=== PATIENT | female | born 1960 | race Caucasian/White ===

== ENCOUNTER 2016-11-13 12:23 | Observation (INO) | payer OTHER ==
[2016-11-13 12:53] VITALS: BMI 31.1
[2016-11-13] MEDS ORDERED: ASPIRIN 81 MG CHEWABLE TABLETS PO ONE (13:03)
--- NOTE | 2016-11-13 13:03 | PDOC ---
History of Present Illness - General History Source: Patient Exam Limitations: No Limitations - History of Present Illness Initial Comments: 11/13/16 13:08 <Donna Roberts - Last Filed: 11/13/16 16:54> - General History Source: Patient Exam Limitations: No Limitations - History of Present Illness Initial Comments: 11/13/16 17:36 The patient is a 55-year-old woman, with a past medical history of gastroesophageal reflux disease and constipation who presents to the emergency department via walk-in for further evaluation of a multiple complaints. No fall / trauma. She reports a mild left temporal headache that occasionally radiates to the back of her head and down her left upper/lower extremities. Patient reports associated symptoms of neck pain and pressure sensation behind her eyes. She admits that her neck pain is resolved after taking Motrin. P Also endorses weakness to her L arm that has been going on for several days. She presents to the ED today, as her symptoms have persisted and worsen today. Patient also reports nonexertional chest tightness for the past couple of days. She also reports recently having URI symptoms of a constant cough and shortness of breath for the past weeks. She denies fever, chills, lightheadedness, dizziness, palpitations, abdominal pain, nausea, vomiting, diarrhea. Allergies: None Known Past Surgical History: Right inguinal hernia repair Social History: No tobacco, ETOH and recreational drug use. Primary Care Physician: Dr. June Schafer [phone] <Dhruv Cole - Last Filed: 11/13/16 17:39> - General Stated Complaint: LT SIDE NUMBNESS, FACE PAIN Time Seen by Provider: 11/13/16 12:47 Past History <Donna Roberts - Last Filed: 11/13/16 16:54> - Past Medical History Anemia: No Asthma: No Cancer: No Cardiac Disorders: No CVA: No COPD: No CHF: No Dementia: No Diabetes: No GI Disorders: Yes (GERD) Disorders: No HTN: No Hypercholesterolemia: No Liver Disease: No Suicide Attempt (Hx): No Seizures: No Thyroid Disease: No Lung CA: Yes (depression) - Surgical History Abdominal Surgery: Yes (R INGUINAL HERNIA REPAIR) Appendectomy: No Cardiac Surgery: No Cholecystectomy: No Lung Surgery: No Neurologic Surgery: No Orthopedic Surgery: No - Psycho/Social/Smoking Cessation Hx Suicidal Ideation: No Smoking History: Never smoked Have you smoked in the past 12 months: No Hx Alcohol Use: No Drug/Substance Use Hx: No Substance Use Type: None Hx Substance Use Treatment: No <Dhruv Cole - Last Filed: 11/13/16 17:39> - Past Medical History Allergies/Adverse Reactions: Allergies Allergy/AdvReac Type Severity Reaction Status Date / Time No Known Drug Allergies Allergy Verified 11/13/16 12:51 Review of Systems - Review of Systems Able to Perform ROS?: Yes Comments:: 11/13/16 13:08 <Roberts,Donna - Last Filed: 11/13/16 16:54> - Review of Systems Able to Perform ROS?: Yes Comments:: 11/13/16 17:37 CONSTITUTIONAL: No reported: Fever, Chills, Diaphoresis, Generalized Weakness, Malaise, Loss of Appetite HEENT: Reported: Eye Pain. Visual Changes. No reported: Rhinorrhea, Nasal Congestion, Throat Pain, Throat Swelling, Difficulty Swallowing, Mouth Swelling, Ear Pain. CARDIOVASCULAR: Reported: Chest Tightness. No reported: Syncope, Palpitations, Irregular Heart Rate, Lightheadedness, Peripheral Edema RESPIRATORY: Reported: Cough. Shortness of Breath. No reported: SOB with Exertion, Orthopnea , Wheezing, Stridor, Hemoptysis GASTROINTESTINAL: No reported: Abdominal pain, Abdominal Distension, Nausea, Vomiting, Diarrhea, Constipation, Melena, Hematochezia GENITOURINARY: No reported: Dysuria, Frequency, Urgency, Hesitancy, Flank Pain, Genital Pain MUSCULOSKELETAL: Reported: +Neck Pain No reported: Myalgia, Arthralgia, Joint Swelling, Back pain. SKIN: No reported: Rash, Itching, Pallor HEMEATOLOGIC/IMMUNOLOGIC: No reported: Easy Bleeding, Easy Bruising, Lymphadenopathy, Frequent infections ENDOCRINE: No reported: Unexplained Weight Gain, Unexplained Weight Loss, Heat Intolerance , Cold Intolerance NEUROLOGIC: Reported: Headache. Left Sided Weakness/Numbing Sensations. No reported: Headache, Vertigo, Lightheadedness, Unsteady Gait, Seizure, Mental Status Changes, Incontinence PSYCHIATRIC: No reported: Anxiety, Depression <KelseyJed reyezan - Last Filed: 11/13/16 17:39> *Physical Exam - Vital Signs Last Vital Signs Temp Pulse Resp BP Pulse Ox 97.8 F 74 18 114/81 98 11/13/16 12:51 11/13/16 12:51 11/13/16 12:51 11/13/16 12:51 11/13/16 12:51 - Physical Exam Comments: 11/13/16 13:08 <Donna Roberts - Last Filed: 11/13/16 16:54> - Vital Signs Last Vital Signs Temp Pulse Resp BP Pulse Ox 97.8 F 74 18 114/81 98 11/13/16 12:51 11/13/16 12:51 11/13/16 12:51 11/13/16 12:51 11/13/16 12:51 - Physical Exam Comments: 11/13/16 17:37 GENERAL: The patient is awake, alert, and fully oriented, Nontoxic - in no acute distress. HEAD: Normocephalic, atraumatic. EYES: extraocular movements intact, sclera anicteric, conjunctiva clear. ENT: Normal voice, Moist mucous membranes. NECK: Normal range of motion, supple LUNGS: Breath sounds equal, clear to auscultation bilaterally. No wheezes, no rhonchi, no rales. HEART: Regular rate and rhythm, normal S1 and S2 without murmur, rub or gallop. ABDOMEN: Soft, nontender, normoactive bowel sounds. No guarding, no rebound. No CVA tenderness EXTREMITIES: Normal range of motion, no edema. No clubbing or cyanosis. No cords, erythema, or tenderness. NEUROLOGICAL: No facial assymetry, Normal speech, 5-/5 elbow flexion on LUE PSYCH: Normal mood, normal affect. SKIN: Warm, Dry, normal turgor, <Kelsey,Dhruv - Last Filed: 11/13/16 17:39> Heart Score/ECG Review - History History: Slightly suspicious - Electrocardiogram EKG: Normal - Age Age: 45-65 - Risk Factors Based on the list above the patient has:: No risk factors known - Troponin Troponin: </= normal limit - Score Heart Score - Total: 1 - ECG Impressions Comment:: 11/13/16 13:29 Twelve-lead EKG was performed and reviewed by me. There is normal sinus rhythm with a normal rate. rate of [address] changes suggestive of acute ischemia <Kelsey,Dhruv - Last Filed: 11/13/16 17:39> ED Treatment Course - LABORATORY CBC & Chemistry Diagram: 11/13/16 13:25 11/13/16 13:25 - RADIOLOGY Radiograph Interpretation: 11/13/16 15:14 EXAM: CT/HEAD CT WITHOUT CONTRAST IMPRESSION: No evidence of intracranial hemorrhage. There is no discrete infarct within the limitations of CT. No obvious mass lesion is identified on noncontrast imaging. There is no extra-axial fluid collection. The ventricles and cisterns appear unremarkable. Partly empty sella turcica. EXAM: RAD/CHEST X-RAY PORTABLE IMPRESSION: Since 07/11/2016, there is little change. Again noted are clear lungs , normal aorta, normal saray and large heart. The angles are sharp. The bones and soft tissues are intact <Donna Roberts - Last Filed: 11/13/16 16:54> - LABORATORY CBC & Chemistry Diagram: 11/13/16 13:25 11/13/16 13:25 <Dhruv Cole - Last Filed: 11/13/16 17:39> Medical Decision Making - Medical Decision Making 11/13/16 16:11 A call was placed to patient's PMD, Dr. June Schafer. Informed by office staff that Dr. Schafer is with clients and would get back to us at her earliest convenience. 11/13/16 16:12 A call was placed to Dr. Delon Milan. Left voicemail. 11/13/16 16:[address] Delon Milan. Case was discussed. Accepts case. <Donna Roberts - Last Filed: 11/13/16 16:54> - Medical Decision Making 11/13/16 13:01 55F no pmhx presents with complaint of headache, left sided neck pain, L sided arm weakness, chest pain, shortness of breath, in setting of having recent URI/ cough. On exam pt is well appearing in no distress, with exam noted for mild L sided weakness. pt with known history of L sided cervical radiculopathy at approx c6-c7 --? possible cause of her neck pain and weakness will obtain trops ekg to r/o acs will obtain cxr to r/o pna will reassess 11/13/16 16:05 pts labs reviewed negative cxr negative ct head negative will discuss with dr. Schafer regarding admission/observation. 11/13/16 16:14 consideration given to PE/dissectoin - while pt has few risk factors, that is one diagnosis that would tie together her vague complaints of chest pain and arm weakness/tingling. will obtain CTA chest 11/13/16 16:[address] Milan agreed with observation awaiting CTA chest. Stable for telemetry Case discussed in detail with admitting physician including history, physical exam and ancillary studies. Admitting physician has assumed care for the patient, will follow all pending diagnostics and will complete the evaluation and treatment. <Dhruv Cole - Last Filed: 11/13/16 17:39> *DC/Admit/Observation/Transfer - Attestations Scribe Attestion: 11/13/16 13:08 Documentation prepared by Donna Roberts, acting as medical care evaluation specialist for Dhruv Cole MD. <Donna Roberts - Last Filed: 11/13/16 16:54> - Discharge Dispostion Admit: Yes <Dhruv Cole - Last Filed: 11/13/16 17:39> Diagnosis at time of Disposition: Chest pain Qualifiers: Chest pain type: unspecified Qualified Code(s): R07.9 - Chest pain, unspecified - Referrals Referrals: June Schafer MD [Primary Care Provider] -
[2016-11-13] MEDS ORDERED: ASPIRIN 81 MG CHEWABLE TABLETS ONE (13:17)
[2016-11-13 13:31] LABS: BASOPHIL 0.3 % (0-2.0); EOSINOPHIL 0.1 % (0-4.5); MCH 26.6 pg (25.7-33.7); MCHC 32.9 g/dl (32.0-36.0); MEAN CELL VOLUME 80.8 fl (80-96); MEAN PLT VOLUME 9.1 fl (7.5-11.1); NEUTROPHILS 61.2 % (42.8-82.8); PLATELET COUNT 188 K/MM3 (134-434); RDW 13.1 % (11.6-15.6); WHITE BLOOD COUNT 7.1 K/mm3 (4.0-10.0)
[2016-11-13 13:54] LABS: ALBUMIN 3.6 g/dl (3.4-5.0); ANION GAP 10 (8-16); CALCIUM 8.4 mg/dL (8.5-10.1); CO2 28 mmol/L (21-32); CREATININE 0.5 mg/dL (0.55-1.02); GLUCOSE,RANDOM 88 mg/dL (74-106); SGOT/AST 15 U/L (15-37); SGPT/ALT 21 U/L (12-78)
[2016-11-13 13:59] LABS: ALK PHOS 76 U/L (45-117); BILIRUBIN,TOTAL 0.4 mg/dL (0.2-1.0); TOT PROT 6.9 g/dl (6.4-8.2); TROPONIN I < 0.02 ng/ml (0.00-0.05)
[2016-11-13 14:44] LABS: THYROID STIMULATING HORMONE 0.37 uIU/ml (0.358-3.74)
[2016-11-13 16:20] LABS: URINE APPEARANCE CLEAR; URINE BILIRUBIN NEGATIVE (NEGATIVE); URINE BLOOD NEGATIVE (NEGATIVE); URINE COLOR STRAW; URINE GLUCOSE (UA) NEGATIVE (NEGATIVE); URINE KETONE NEGATIVE (NEGATIVE); URINE LEUK ESTERASE NEGATIVE (NEGATIVE); URINE NITRITE NEGATIVE (NEGATIVE); URINE PROTEIN NEGATIVE (NEGATIVE); URINE UROBILINOGEN NEGATIVE E.U./dl (0.2-1.0)
[2016-11-13] MEDS ORDERED: SIMETHICONE 80 MG TAB.CHEW (FP) PO PRN (23:08)
[2016-11-13] MEDS ORDERED: traMADol HCL 50 MG TABLET PO PRN (23:10)
[2016-11-13] MEDS: FAMOTIDINE 20 MG/50 ML IVPB 50 ML IVPB SCH (23:22)
--- NOTE | 2016-11-13 23:26 | HP ---
Admitting History and Physical - Admission History of Present Illness: 55 y/o f came for eval of retrosternal chest pain and pain in neck and left shoulder and left arm pain is continuous, no precipitating or palliating factors she is continually busy and has not had to stop her usual activity she is non smoker she is sedentary lately with strong family hx heart disease- both parents from heart disease and a brother has ?congenital heart disease she had a chest ct angio head ct and cxr in er- unremarkable pmhx- severe gerd, not on meds but is candidate and pending surgical procedure for a hiatus hernia History Source: Patient Limitations to Obtaining History: No Limitations - Past Medical History Gastrointestinal: Yes: GERD, Hiatal Hernia ...LMP: 02/24/14 - Smoking History Smoking history: Never smoked Have you smoked in the past 12 months: No - Alcohol/Substance Use Hx Alcohol Use: No Home Medications - Allergies Allergies/Adverse Reactions: Allergies Allergy/AdvReac Type Severity Reaction Status Date / Time No Known Drug Allergies Allergy Verified 11/13/16 12:51 Physical Examination Vital Signs: Vital Signs Temperature 97.8 F 11/13/16 12:51 Pulse Rate 74 11/13/16 21:05 Respiratory Rate 18 11/13/16 12:51 Blood Pressure 116/75 11/13/16 21:05 O2 Sat by Pulse Oximetry (%) 98 11/13/16 12:51 Constitutional: Yes: No Distress, Calm, Obese Eyes: Yes: WNL, Conjunctiva Clear, EOM Intact HENT: Yes: WNL, Atraumatic, Normocephalic Neck: Yes: WNL, Supple, Trachea Midline Cardiovascular: Yes: WNL, Regular Rate and Rhythm Respiratory: Yes: WNL, Regular, CTA Bilaterally Gastrointestinal: Yes: WNL, Normal Bowel Sounds Musculoskeletal: Yes: WNL Extremities: Yes: WNL Edema: No Integumentary: Yes: WNL Neurological: Yes: WNL, Alert, Oriented ...Motor Strength: WNL Psychiatric: Yes: WNL Assessment/Plan 55 y/o f chest pain gerd, untreated family hx heart dis cardiac enzymes ekg cardiol eval re ?stress test
[2016-11-13 23:58] LABS: TROPONIN I < 0.02 ng/ml (0.00-0.05)
--- NOTE | 2016-11-14 00:21 | EKG ---
Test Reason : Blood Pressure : / mmHG Vent. Rate : 063 BPM Atrial Rate : 063 BPM P-R Int : 166 ms QRS Dur : 102 ms QT Int : 414 ms P-R-T Axes : 047 -18 019 degrees QTc Int : 423 ms NORMAL SINUS RHYTHM LOW VOLTAGE QRS INCOMPLETE RIGHT BUNDLE BRANCH BLOCK CANNOT RULE OUT ANTERIOR INFARCT , AGE UNDETERMINED ABNORMAL ECG WHEN COMPARED WITH ECG OF 10-MAY-2015 21:15, NO SIGNIFICANT CHANGE WAS FOUND Confirmed by SOLIS CMKEON, TIFFANIE ([id number]) on 11/14/2016 12:21:16 AM Referred By: Confirmed By:TIFFANIE ELY MD
[2016-11-14 06:24] VITALS: TEMP 98.2
[2016-11-14 08:20] LABS: TROPONIN I < 0.02 ng/ml (0.00-0.05)
--- NOTE | 2016-11-14 08:58 | CON.CARD ---
Consult Consult Specialty:: Cardiology Referred by:: Dr. Milan Reason for Consultation:: Chest pain - History of Present Illness Chief Complaint: Chest pain History of Present Illness: 55 year old woman with a history of GERD, came to the ER with c/o headache, L arm pain and L arm weakness and chest pain. In terms of chest pain pt states that she has had intermittent chest pain for over one year that occurs on and off and can last for hours at at time. she states that it always occurs at rest and never with exertion. described as substernal, pressure like, non-radiating. she came to the er because of headache, left sided neck pain, left arm pain and weakness. she did have a recent URI. denies pnd, orthopnea, LE edema, lightheadedness, dizziness, syncope, or near syncope. - History Source History Provided By: Patient, Medical Record Limitations to Obtaining History: No Limitations - Past Medical History Gastrointestinal: Yes: GERD, Hiatal Hernia ...LMP: 02/24/14 - Alcohol/Substance Use Hx Alcohol Use: No - Smoking History Smoking history: Never smoked Have you smoked in the past 12 months: No - Social History ADL: Independent History of Recent Travel: No Home Medications - Allergies Allergies/Adverse Reactions: Allergies Allergy/AdvReac Type Severity Reaction Status Date / Time No Known Drug Allergies Allergy Verified 11/13/16 12:51 - Home Medications Home Medications: Ambulatory Orders NK [No Known Home Medication] 11/14/16 Family Disease History - Family Disease History Family History: Denies Review of Systems - Review of Systems Constitutional: denies: No Symptoms, Chills, Diaphoresis, Fever, Lethargy, Loss of Appetite, Malaise, Night Sweats, Unintentional Wgt. Loss, Weakness, Other Eyes: denies: No Symptoms, Blind Spots, Blurred Vision, Double Vision, Eye Pain , Floaters, Photophobia, Recent Change in Vision, Other HENT: denies: No Symptoms, Difficult Swallowing, Ear Discharge, Ear Pain, Epistaxis, Gingival Bleeding, Hearing Loss, Mouth Swelling, Nasal Congestion, Ocular Prosthesis, Throat Pain, Toothache, Ringing in Ears, Other Neck: reports: Stiffness, Tenderness. denies: No Symptoms, Decreased ROM, Lumps , Pain on Movement, Swollen Glands, Other Cardiovascular: reports: Chest Pain, Shortness of Breath. denies: No Symptoms, Edema, Palpitations, Other Respiratory: reports: Cough, SOB. denies: No Symptoms, Exercise Intolerance, Hemoptysis, Orthopnea, PND, Snoring, SOB on Exertion, Wheezing, Other Gastrointestinal: reports: Indigestion. denies: No Symptoms, Abdominal Pain, Bloating, Constipation, Diarrhea, Dysphagia, Melena, Nausea, Rectal Bleeding, Vomiting, Vomiting Blood, Other Genitourinary: denies: No Symptoms, Burning, Discharge, Dysuria, Flank Pain, Frequency, Hematuria, Incontinence, Lesions, Menses, Pain, Testicular Mass, Testicular Pain, Testicular Swelling, Urgency, Vaginal Bleeding, Other Breasts: denies: No Symptoms Reported, See HPI, Breast Implants, Discharge from Nipple, Lumps, Pain, Skin Changes, Other Musculoskeletal: reports: Extremity Pain. denies: No Symptoms, Back Pain, Crepitus, Decreased ROM, Joint Pain, Joint Swelling, Muscle Pain, Muscle Cramps , Muscle Weakness, Other Integumentary: denies: No Symptoms, Blister, Bruising, Change in Color, Eczema, Erythema, Incision, Lesions, Lump, Pallor, Pruritis, Rash, Wound, Other Neurological: reports: Weakness. denies: No Symptoms, Change in LOC, Change in Speech, Confusion, Dizziness, Headache, Incoordination, Numbness, Parasthesia, Pre-Existing Deficit, Seizure, Syncope, Tremors, Unsteady Gait, Other Endocrine: denies: No Symptoms, Excessive Sweating, Flushing, Increased Hunger, Increased Thirst, Intolerance to Cold, Intolerance to Heat, Unexplained Weight Gain, Unexplained Weight Loss, Other Hematology/Lymphatic: denies: No Symptoms, Easily Bruised, Excessive Bleeding, Swollen Glands, Other Psychiatric: denies: No Symptoms, Altered Sleep Pattern, Anxiety, Depression, Hallucinations, Panic, Paranoia, Suicidal, Other Vital Signs: Vital Signs Temperature 98.2 F 11/14/16 06:23 Pulse Rate 71 11/14/16 06:23 Respiratory Rate 11/14/16 06:23 Blood Pressure 112/77 11/14/16 06:23 O2 Sat by Pulse Oximetry (%) 97 11/14/16 06:23 Constitutional: Yes: Well Nourished, No Distress, Calm Eyes: Yes: WNL, Conjunctiva Clear, EOM Intact, PERRL HENT: Yes: WNL, Atraumatic, Normocephalic Neck: Yes: WNL, Supple, Trachea Midline Respiratory: Yes: WNL, Regular, CTA Bilaterally. No: Rales, Rhonchi, Wheezes Gastrointestinal: Yes: WNL, Normal Bowel Sounds, Soft. No: Distention, Tenderness Renal/: Yes: WNL Cardiovascular: Yes: WNL, Regular Rate and Rhythm. No: Bradycardia, Tachycardia , Pulse Irregular, Gallop, Rub, Varicosities JVD: No Carotid Bruit: No PMI: Non-Displaced Heart Sounds: Yes: S1, S2. No: Split S2, S3, S4, Clicks, Gallop, Rub, Bruit Murmur: No: Systolic Murmur, Diastolic Murmur Musculoskeletal: Yes: WNL Extremities: Yes: WNL Edema: No Peripheral Pulses WNL: Yes Peripheral Pulses: 2+ Left Doralis Pedis, 2+ Right Dorsalis Pedis Integumentary: Yes: WNL Neurological: Yes: WNL, Alert, Oriented, Cran Nerves II-XII Intact ...Motor Strength: WNL Psychiatric: Yes: WNL, Alert, Oriented - Other Data Labs, Other Data: Troponin, BNP 11/13/16 11/14/16 23:10 07:35 Troponin I < 0.02 < 0.02 Troponin, BNP 11/13/16 11/14/16 23:10 07:35 Troponin I < 0.02 < 0.02 ekg-nsr 63bpm, poor R progression, incomplete rbbb Echo: Pending Imaging - Results Chest X-ray: Report Reviewed, Image Reviewed EKG: Report Reviewed, Image Reviewed Other: Report Reviewed, Image Reviewed Assessment/Plan 55 year old woman with a history of GERD, came to the ER with c/o headache, L arm pain and L arm weakness and chest pain. In terms of chest pain pt states that she has had intermittent chest pain for over one year that occurs on and off and can last for hours at at time. she states that it always occurs at rest and never with exertion. described as substernal, pressure like, non-radiating. she came to the er because of headache, left sided neck pain, left arm pain and weakness. she did have a recent URI. Atypical chest pain-unlikely ACS -cardiac enzymes wnl -will check echo and exercise treadmill stress test this am -if above shows no sig abnl, pt would be acceptable for discharge from a cardiac standpoint with a plan for close outpatient follow up L arm pain and weakness/neck pain -does not appear related to cardiac issues -evaluate for other sources such as cervical disc disease
[2016-11-14] MEDS ORDERED: ASPIRIN COATED 81 MG TABLET.EC PO SCH (10:00)
[2016-11-14] MEDS: FAMOTIDINE 20 MG/50 ML IVPB 50 ML IVPB SCH (11:32)
[2016-11-14 12:24] VITALS: BP 111/66; PULSE 73
--- NOTE | 2016-11-14 13:29 | DS ---
Physical Examination Vital Signs: Vital Signs Temperature 98.2 F 11/14/16 06:23 Pulse Rate 73 11/14/16 12:00 Respiratory Rate 18 11/14/16 12:00 Blood Pressure 111/66 11/14/16 12:00 O2 Sat by Pulse Oximetry (%) 94 L 11/14/16 12:00 Discharge Summary Reason For Visit: CHEST PAIN Current Active Problems Chest pain (Acute) Hospital Course: seen by cardio pending ett and echo will d/c after those tests if results are negative - Instructions Referrals: June Schafer MD [Primary Care Provider] - - Home Medications Comprehensive Discharge Medication List: Ambulatory Orders NK [No Known Home Medication] 11/14/16
--- NOTE | 2016-11-14 15:58 | TRE ---
Protocol Name : SHAD Max Work Load (METS*10) : 125 Time In Exercise Phase : 00:10:30 Max. Systolic BP : 128 mmHg Max Diastolic BP : 80 mmHg Max Heart Rate : 142 BPM Max Predicted Heart Rate : 167 BPM Attending Physician : TIFFANIE ELY Reason For Termination : Target Heart Rate Achieved Reason for Test : CHEST PAIN Stress Protocol : SHAD Rest HR : 81 BPM PeakEx METs : 12.5 METS Arrhythmias : No Arrhythmias Resting ECG : Normal Recovery ECG Response (OLD) : Overall Impression : Normal stress test Chest Pain : No Chest Pain HR Response To Exercise : Normal Overall HR Response To Exercise BP Response To Exercise : Normal Resting BP with Blunted Response Functional Capacity : Normal Diagnosis : 1. Overall negative stress test 2. Appropriate blood pressure response 3. Fair exercise tolerance and capacity 4. No significant ECG changes were seen Confirmed by TIFFANIE ELY MD ([id number]) on 11/14/2016 3:57:53 PM
--- NOTE | 2016-11-14 17:44 | EKG ---
Test Reason : Blood Pressure : / mmHG Vent. Rate : 066 BPM Atrial Rate : 066 BPM P-R Int : 162 ms QRS Dur : 108 ms QT Int : 412 ms P-R-T Axes : 037 -23 016 degrees QTc Int : 431 ms NORMAL SINUS RHYTHM NORMAL ECG WHEN COMPARED WITH ECG OF 13-NOV-2016 13:24, NO SIGNIFICANT CHANGE WAS FOUND Confirmed by TIFFANIE ELY MD ([id number]) on 11/14/2016 5:44:33 PM Referred By: DAKOTAH MARKS Confirmed By:TIFFANIE ELY MD
--- NOTE | 2016-11-19 10:28 | EKG ---
Test Reason : Blood Pressure : / mmHG Vent. Rate : 070 BPM Atrial Rate : 070 BPM P-R Int : 162 ms QRS Dur : 106 ms QT Int : 412 ms P-R-T Axes : 034 -10 025 degrees QTc Int : 444 ms NORMAL SINUS RHYTHM LOW VOLTAGE QRS INCOMPLETE RIGHT BUNDLE BRANCH BLOCK WHEN COMPARED WITH ECG OF 13-NOV-2016 13:24, NO SIGNIFICANT CHANGE WAS FOUND Confirmed by MARIA ELENA RIOS MD ([id number]) on 11/19/2016 10:28:14 AM Referred By: Confirmed By:MARIA ELENA RIOS MD
== END 2016-11-14 17:00 | disposition home or self-care (01) ==
LOC: JER 12:23 → JERBED 16:54 → UNDOADMOB 17:31 → JERBED 17:31
PROVIDERS: ADMIT Internal Medicine Nephrology; ATTEND Internal Medicine Nephrology
DX: R07.89 Other chest pain (principal); K21.9 Gastro-esophageal reflux disease without esophagitis; K44.9 Diaphragmatic hernia without obstruction or gangrene; M54.2 Cervicalgia; M79.603 Pain in arm, unspecified
CPT/HCPCS: 36415; 70450-TC; 71010-TC; 71275-TC; 74175-TC; 80053; 81003; 82550; 83735; 83880; 84443; 84484; 84703; 85025; 93005; 93010; 93017; 93018; 93306-TC; 99284-25; G0378

== ENCOUNTER 2016-12-27 20:15 | Emergency (ER) | payer OTHER ==
[2016-12-27 21:05] VITALS: BP 136/77; PULSE 77; TEMP 98.5; BMI 33.2
--- NOTE | 2016-12-27 22:31 | PDOC ---
History of Present Illness - General Chief Complaint: Pain Stated Complaint: PAIN Time Seen by Provider: 12/27/16 21:57 History Source: Patient Exam Limitations: No Limitations - History of Present Illness Initial Comments: 12/27/16 22:31 Patient is here with complaints of chronic neck pain. States is seen ear nose and throat doctor and Dr. Schafer and is being evaluated for swelling to the right side of her neck. Patient is unclear as to the results of any of these studies and was unable to see Dr. Molina in office the past 2 days. Patient has only been taking ibuprofen for pain relief but states pain is becoming more severe. Dr. Schafer's office recommended her coming to emergency department for evaluation and pain control. Denies fever, denies any airway difficulty, denies any worsens swelling then has been her norm the past week, is able to swallow 12/27/16 22:41 Severity: moderate Associated Symptoms: reports: denies symptoms, malaise. denies: fever/chills, headaches Past History - Travel Traveled outside of the country in the last 30 days: No Close contact w/someone who was outside of country & ill: No - Past Medical History Allergies/Adverse Reactions: Allergies Allergy/AdvReac Type Severity Reaction Status Date / Time No Known Drug Allergies Allergy Verified 12/27/16 21:05 Home Medications: Ambulatory Orders Oxycodone HCl/Acetaminophen [Percocet 5-325 mg Tablet -] 1 - 2 tab PO Q4H PRN # 10 tablet MDD 4 12/27/16 Anemia: No Asthma: No Cancer: No Cardiac Disorders: No CVA: No COPD: No CHF: No Dementia: No Diabetes: No GI Disorders: Yes (GERD) Disorders: No HTN: No Hypercholesterolemia: No Liver Disease: No Suicide Attempt (Hx): No Seizures: No Thyroid Disease: No Lung CA: Yes (depression) - Surgical History Abdominal Surgery: Yes (R INGUINAL HERNIA REPAIR) Appendectomy: No Cardiac Surgery: No Cholecystectomy: No Lung Surgery: No Neurologic Surgery: No Orthopedic Surgery: No - Psycho/Social/Smoking Cessation Hx Anxiety: No Suicidal Ideation: No Smoking History: Never smoked Have you smoked in the past 12 months: No Information on smoking cessation initiated: No Hx Alcohol Use: No Drug/Substance Use Hx: No Substance Use Type: None Hx Substance Use Treatment: No Review of Systems - Review of Systems Able to Perform ROS?: Yes Is the patient limited Lao proficient: Yes Constitutional: Yes: Symptoms Reported, See HPI, Malaise HEENTM: Yes: Symptoms Reported, Nose Congestion, Throat Pain, Throat Swelling Musculoskeletal: Yes: Symptoms Reported, See HPI Integumentary: No: Symptoms Reported Neurological: Yes: Symptoms reported All Other Systems: Reviewed and Negative *Physical Exam - Vital Signs Last Vital Signs Temp Pulse Resp BP Pulse Ox 98.5 F 77 18 136/77 98 12/27/16 21:02 12/27/16 21:02 12/27/16 21:02 12/27/16 21:02 12/27/16 21:02 - Physical Exam Comments: 12/27/16 22:42 General Appearance: Yes: Appropriately Dressed, Apparent Distress HEENT: positive: GAURANG, Normal ENT Inspection, Normal Voice, Symmetrical, TMs Normal, Pharynx Normal (no redness, swelling or exudate) Neck: positive: Tender, Supple, Lymphadenopathy (R) (tender and enlarged right submandibular node, thyroid appears soft without any palpable nodules but difficult to assess secondary to tenderness to the right neck wall.) Respiratory/Chest: positive: Lungs Clear, Normal Breath Sounds Cardiovascular: positive: Regular Rate Extremity: positive: Normal Capillary Refill, Normal Inspection, Normal Range of Motion Integumentary: positive: Normal Color, Pale 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 Encouraged to follow-up with Dr. Molina's office for further evaluation, review of completed tests and further treatment. *DC/Admit/Observation/Transfer Diagnosis at time of Disposition: Pain in throat - Discharge Dispostion Disposition: HOME Condition at time of disposition: Stable Admit: No - Patient Instructions Printed Discharge Instructions: DI for Neck Pain Additional Instructions: Rest, avoid heavy lifting or strenuous activity until followed up May continue ibuprofen with food for anti-inflammatory purpose May use 1 Percocet tablet every 6 hours as needed for severe pain See Dr. Schafer this week for review of tests and further exams as required - Post Discharge Activity Work/School Note: Back to Work
[2016-12-27] MEDS ORDERED: OXYCODONE/APAP 5/325MG COMBO TABLET PO ONE (22:35)
[2016-12-27] MEDS ORDERED: OXYCODONE/APAP 5/325MG COMBO TABLET ONE (22:37)
== END 2016-12-27 22:46 | disposition home or self-care (01) ==
LOC: JERFT 20:15 → SUPCPDRO 20:15 → JERFT 22:46
DX: R07.0 Pain in throat (principal); K21.9 Gastro-esophageal reflux disease without esophagitis; Z85.118 Personal history of other malignant neoplasm of bronchus and lung; F32.9 Major depressive disorder, single episode, unspecified
CPT/HCPCS: 99281-25

== ENCOUNTER 2017-07-19 09:38 | Emergency (ER) | payer OTHER ==
[2017-07-19 10:12] VITALS: BMI 33.5
--- NOTE | 2017-07-19 10:34 | PDOC ---
History of Present Illness - General Chief Complaint: Hemoptysis Stated Complaint: COUGH, BACK PAIN Time Seen by Provider: 07/19/17 10:33 - History of Present Illness Initial Comments: 07/19/17 10:45 Patient is a 56 y.o. female with a PMH of GERD and Major Depressive Disorder. presents c/o of persistent cough of 2 weeks that became productive "pinkish" this morning as well as chills. Patient endorses shortness of breath but deneis abdominal pain, Patient notes she was evaluated by her PCP, Dr. Amber Adams, last week at which time she was told she had a virus and discharged with supportive care. Patient notes she came to the ED this morning because she was concerned she had pneumonia. Past History - Past Medical History Allergies/Adverse Reactions: Allergies Allergy/AdvReac Type Severity Reaction Status Date / Time No Known Drug Allergies Allergy Verified 07/19/17 10:07 Home Medications: Ambulatory Orders Oxycodone HCl/Acetaminophen [Percocet 5-325 mg Tablet -] 1 - 2 tab PO Q4H PRN # 10 tablet MDD 4 12/27/16 Anemia: No Asthma: No Cancer: No Cardiac Disorders: No CVA: No COPD: No CHF: No Dementia: No Diabetes: No GI Disorders: Yes (GERD) Disorders: No HTN: No Hypercholesterolemia: No Liver Disease: No Seizures: No Thyroid Disease: No Lung CA: Yes (depression) - Surgical History Abdominal Surgery: Yes (R INGUINAL HERNIA REPAIR) Appendectomy: No Cardiac Surgery: No Cholecystectomy: No Lung Surgery: No Neurologic Surgery: No Orthopedic Surgery: No - Immunization History Immunization Up to Date: Yes - Suicide/Smoking/Psychosocial Hx Smoking History: Never smoked Have you smoked in the past 12 months: No Number of Cigarettes Smoked Daily: 0 Information on smoking cessation initiated: No Hx Alcohol Use: No Drug/Substance Use Hx: No Substance Use Type: None Hx Substance Use Treatment: No Review of Systems - Review of Systems Constitutional: Yes: Chills. No: Fever HEENTM: Yes: Throat Pain. No: Blurred Vision Respiratory: Yes: Cough (pinkish sputum), Shortness of Breath Cardiac (ROS): Yes: Chest Pain ABD/GI: No: Constipated, Diarrhea, Nausea, Vomiting : No: Burning, Dysuria All Other Systems: Reviewed and Negative *Physical Exam - Vital Signs Last Vital Signs Temp Pulse Resp BP Pulse Ox 98.8 F 85 18 123/79 99 07/19/17 10:08 07/19/17 10:08 07/19/17 10:08 07/19/17 10:08 07/19/17 10:08 - Physical Exam General Appearance: Yes: Nourished, Appropriately Dressed Neck: positive: Trachea midline, Supple. negative: Lymphadenopathy (R), Lymphadenopathy (L) Respiratory/Chest: positive: Lungs Clear, Normal Breath Sounds Cardiovascular: positive: Regular Rhythm, Regular Rate, S1, S2 Gastrointestinal/Abdominal: positive: Soft Integumentary: positive: Normal Color, Dry, Warm Neurologic: positive: Fully Oriented, Alert ED Treatment Course - LABORATORY CBC & Chemistry Diagram: 07/19/17 10:47 07/19/17 10:47 Medical Decision Making - Medical Decision Making 07/19/17 11:07 Patient is a 56 y.o. female who presents with cough, chills and generalized malaise. Initial DDX is for bronchitis vs. PNA vs Influenza (less likely as patient had flu shot, and negative swab at outside institution) PLAN: 1. CBC, CMP 2. CXR 3. UA 4. Influenza NS 07/19/17 14:08 CBC shows no leukocytosis (11.3), CMP wnL. Nasopharyngeal aspirate negative for influenza. Wet read of CXR shows no consolidation, no infiltrate. UA nitrite negative, no hematuria. 07/19/17 14:32 Official CXR shows no acute pulmonary process. Patient discharged home with instruction for supportive care and PCP follow-up. *DC/Admit/Observation/Transfer Diagnosis at time of Disposition: Cough - Discharge Dispostion Disposition: HOME Condition at time of disposition: Good Admit: No - Referrals Referrals: Amber Adams MD [Primary Care Provider] - - Patient Instructions Additional Instructions: Please return to the Emergency Department should you have any worsening or concerning symptoms.
--- NOTE | 2017-07-19 10:51 | PDOC ---
Attending Attestation - Resident Resident Name: Ismael Gibsonica - ED Attending Attestation I have performed the following: I have examined & evaluated the patient, The case was reviewed & discussed with the resident, I agree w/resident's findings & plan, Exceptions are as noted - HPI HPI: 07/19/17 10:57 56y F hx of gerd, depression presents with 2 weeks of cough that became productive of pinkish sputum today. n oassociated f/c, but pt does endorse mild sob when she was rushing this morning. Pt also endorses some body aches. No assocated leg pain, calf pain, pleuritic cp, fevers, leg swelling, leg pain, arellano. pts exam is unremarkable, lungs clear, pt does hve slight swellin gin hte LLE, but this is chronic per pt due to history of LLE problems. Neg homans sign , no calf tenderness.. will ck labs, cxr to r/o pna flu swab to r/o influenza considered PE, however based on clinical hitsory, unlikely also WELLS criteria for PE low risk 07/19/17 13:57 cxr negative labs reviewed neg flu will dc with pmd fu suspect viral syndrome - Physicial Exam PE: 07/19/17 12:23 see above - Medical Decision Making 07/19/17 12:23 see gee Heart Score/ECG Review - ECG Impressions Comment:: 07/19/17 12:24 Twelve-lead EKG was performed and reviewed by me. There is normal sinus rhythm with a normal rate. rate of 67 The axis is normal. Incomplete RBBB There is normal R wave progression TWI in lead III There are no ST or T wave abnormalities.
[2017-07-19 11:35] LABS: BASOPHIL 0.3 % (0-2.0); MCH 25.3 pg (25.7-33.7); MCHC 32.3 g/dl (32.0-36.0); MEAN CELL VOLUME 78.4 fl (80-96); MEAN PLT VOLUME 9.7 fl (7.5-11.1); NEUTROPHILS 77.3 % (42.8-82.8); PLATELET COUNT 181 K/MM3 (134-434); RDW 13.8 % (11.6-15.6); WHITE BLOOD COUNT 11.3 K/mm3 (4.0-10.0)
[2017-07-19 11:38] LABS: URINE APPEARANCE CLEAR; URINE BILIRUBIN NEGATIVE (NEGATIVE); URINE BLOOD NEGATIVE (NEGATIVE); URINE COLOR YELLOW; URINE GLUCOSE (UA) NEGATIVE (NEGATIVE); URINE KETONE NEGATIVE (NEGATIVE); URINE NITRITE NEGATIVE (NEGATIVE); URINE PROTEIN NEGATIVE (NEGATIVE); URINE UROBILINOGEN NEGATIVE mg/dL (0.2-1.0)
[2017-07-19] MEDS ORDERED: ACETAMINOPHEN 325 MG TABLET (FP) PO ONE (11:46)
[2017-07-19] MEDS ORDERED: ACETAMINOPHEN 325 MG TABLET (FP) ONE (11:48)
[2017-07-19 12:03] LABS: ALBUMIN 3.4 g/dl (3.4-5.0); ANION GAP 6 (8-16); CALCIUM 8.1 mg/dL (8.5-10.1); CO2 30 mmol/L (21-32); CREATININE 0.5 mg/dL (0.55-1.02); GLUCOSE,RANDOM 87 mg/dL (74-106); SGOT/AST 11 U/L (15-37); SGPT/ALT 18 U/L (12-78)
[2017-07-19 12:05] LABS: ALK PHOS 92 U/L (45-117); BILIRUBIN,TOTAL 0.5 mg/dL (0.2-1.0)
[2017-07-19 14:37] VITALS: BP 118/84; PULSE 75; TEMP 98.3
[2017-07-19 16:54] LABS: URINE LEUK ESTERASE Negative (NEGATIVE)
--- NOTE | 2017-07-20 09:14 | EKG ---
Test Reason : Blood Pressure : / mmHG Vent. Rate : 067 BPM Atrial Rate : 067 BPM P-R Int : 164 ms QRS Dur : 108 ms QT Int : 414 ms P-R-T Axes : 038 -05 014 degrees QTc Int : 437 ms NORMAL SINUS RHYTHM INCOMPLETE RIGHT BUNDLE BRANCH BLOCK WHEN COMPARED WITH ECG OF 14-NOV-2016 09:00, INCOMPLETE RIGHT BUNDLE BRANCH BLOCK IS NOW PRESENT Confirmed by MARIA ELENA RIOS MD ([id number]) on 07/20/2017 9:14:13 AM Referred By: Confirmed By:MARIA ELENA RIOS MD
== END 2017-07-19 14:37 | disposition home or self-care (01) ==
LOC: JER 09:38
DX: R51 Headache (principal); F33.9 Major depressive disorder, recurrent, unspecified; K21.9 Gastro-esophageal reflux disease without esophagitis
CPT/HCPCS: 36415; 71020-TC; 80053; 81003; 84703; 85025; 87804; 93005; 93010; 99282-25

== ENCOUNTER 2018-08-08 22:14 | Emergency (ER) | payer OTHER ==
[2018-08-08 22:26] VITALS: BP 105/51; PULSE 99; TEMP 98.4; BMI 31.8
--- NOTE | 2018-08-08 22:27 | PDOC ---
History of Present Illness - General Chief Complaint: Pain Stated Complaint: HEMORRHOIDS - History of Present Illness Initial Comments: The patient is a 57F 1 wk s/p hemorrhoidectomy who presents for evaluation of approximately 5 days of dysuria with associated difficulty voiding, left flank pain, and left back pain. She also endorses suprapubic abdominal pain described as achy/pressure that radiates towards her left flank and back. The patient denies difficulty with BMs, blood in her stool, or pain at the surgical site. She endorses being compliant w/ sitz baths and stool softeners. She reports using Percocet for pain with mild to moderate relief. Denies fevers, chest pain, SOB, N/V, or changes in sensation 08/08/18 22:45 Past History - Past Medical History Allergies/Adverse Reactions: Allergies Allergy/AdvReac Type Severity Reaction Status Date / Time No Known Drug Allergies Allergy Verified 08/08/18 22:21 Home Medications: Ambulatory Orders Oxycodone HCl/Acetaminophen [Percocet 5-325 mg Tablet -] 1 - 2 tab PO Q4H PRN # 10 tablet MDD 4 12/27/16 Anemia: No Asthma: No Cancer: No Cardiac Disorders: No CVA: No COPD: No CHF: No Dementia: No Diabetes: No GI Disorders: Yes (GERD) Disorders: No HTN: No Hypercholesterolemia: No Liver Disease: No Seizures: No Thyroid Disease: No Lung CA: Yes (depression) - Surgical History Abdominal Surgery: Yes (R INGUINAL HERNIA REPAIR) Appendectomy: No Cardiac Surgery: No Cholecystectomy: No Lung Surgery: No Neurologic Surgery: No Orthopedic Surgery: No - Immunization History Immunization Up to Date: Yes - Suicide/Smoking/Psychosocial Hx Smoking History: Never smoked Have you smoked in the past 12 months: No Number of Cigarettes Smoked Daily: 0 Hx Alcohol Use: No Drug/Substance Use Hx: No Substance Use Type: None Hx Substance Use Treatment: No Review of Systems - Review of Systems Able to Perform ROS?: Yes Comments:: GENERAL/CONSTITUTIONAL: No fever or chills. No weakness HEAD, EYES, EARS, NOSE AND THROAT: No change in vision. No ear pain or discharge. No sore throat CARDIOVASCULAR: No chest pain or shortness of breath RESPIRATORY: No cough, wheezing, or hemoptysis GASTROINTESTINAL: No nausea, vomiting GENITOURINARY: per HPI MUSCULOSKELETAL: No joint or muscle swelling or pain. No neck or back pain SKIN: No rash NEUROLOGIC: No headache, vertigo, loss of consciousness, or change in strength/ sensation ENDOCRINE: No increased thirst. No abnormal weight change HEMATOLOGIC/LYMPHATIC: No anemia, easy bleeding, or history of blood clots ALLERGIC/IMMUNOLOGIC: No hives or skin allergy 08/08/18 22:26 Is the patient limited Maltese proficient: No *Physical Exam - Vital Signs Last Vital Signs Temp Pulse Resp BP Pulse Ox 98.4 F 99 H 18 105/51 L 100 08/08/18 22:15 08/08/18 22:15 08/08/18 22:15 08/08/18 22:15 08/08/18 22:15 - Physical Exam Comments: GENERAL: Awake, alert, and fully oriented, in no acute distress HEAD: No signs of trauma, normocephalic, atraumatic EYES: PERRLA, EOMI, sclera anicteric, conjunctiva clear ENT: Hearing grossly normal, nares patent, oropharynx clear without exudates. Moist mucosa LUNGS: No distress, speaks full sentences, clear to auscultation bilaterally HEART: Regular rate and rhythm, normal S1 and S2, no murmurs, rubs or gallops, peripheral pulses normal and equal bilaterally ABDOMEN: Soft, suprapubic ttp, left flank ttp, +L CVA TTP, normoactive bowel sounds. No guarding, no rebound EXTREMITIES : Normal inspection, Normal range of motion, no edema. No clubbing or cyanosis NEUROLOGICAL: Cranial nerves II through XII grossly intact. Normal speech, normal gait, no focal sensorimotor deficits 08/08/18 22:26 ED Treatment Course - LABORATORY CBC & Chemistry Diagram: 08/08/18 23:18 08/08/18 23:18 Medical Decision Making - Medical Decision Making The patient is a 57F who presents for evaluation for difficulty w/ urination, suprapubic pain, and left flank pain concerning for UTI v pyelonephritis v nephrolithiasis CMP, CBC, UA, UCx CT spiral Morphine 4mg IV once for pain 08/08/18 22:[address] Will POCUS bladder Will give once more opportunity to void, if unsuccessful, plan for straight cath to obtain urine 08/08/18 23:51 POCUS bladder - 524cc urine -Will straight cath for urine Patient signed out to Dr. Yu. All history and care to this point discussed and all questions answered. 08/09/18 00:19 *DC/Admit/Observation/Transfer Diagnosis at time of Disposition: Urinary retention - Discharge Dispostion Condition at time of disposition: Fair - Referrals Referrals: Amber Adams MD [Primary Care Provider] - - Patient Instructions - Post Discharge Activity
--- NOTE | 2018-08-08 22:42 | PDOC ---
Attending Attestation - HPI HPI: 08/08/18 23:26 Patient is a 57 year old female with a significant past medical history of GERD and Major Depressive Disorder, who presents to the ED with complaints of dysuria that began x5 days ago. Patient reports experiencing intermittent episodes of dysuria, as well as associated symptoms of left flank pain, left sided back pain, and superpubic abdominal pain prompting her to come into the ED for further evaluation. She reports abdominal pain is an achy pressured pain that she states has begun to radiate towards her left flank. Patient reports taking percocet for pain with mild relief, as well as using stool softeners and sitz baths. Denies chest pain, Sob. Denies nausea, vomiting. Denies contact with sick individuals, out of state travelling. Denies fevers, chills. Denies any other symptoms. Allergies: None Social history: No smoking. No alcohol. No illicit drugs. Surgical history: 1 wk s/p hemorrhoidectomy PMD: Dr. Amber Adams - Physicial Exam PE: 08/08/18 23:45 Vitals: Triage Vital signs reviewed General Appearance: no acute distress, well nourished well developed Head: Atraumatic Eyes: Pupils equal reactive round, extraocular movement intact Ears: TMs normal bilaterally Nose: Nares patent bilaterally; no nasal congestion Throat: Posterior oropharynx without erythema, mucous membranes moist Neck: Supple; No Nuchal rigidity Chest Wall: Nontender Cardiac: Regular rate and rhythm, no murmurs, no rubs, no gallops Lungs: Clear to auscultation bilateral, good air movement bilaterally Abdomen: +Left CVA tenderness to palpation. +LLQ tenderness to palpation. Soft, non distended, normal bowel sounds, Genitourinary: Rectal: Exam deferred Extremities: Full range of motion to all extremities, no cyanosis, clubbing, or edema Skin: Warm and dry, no rashes or lesions, no rash, no petechiae Neuro: AOX3; Cranial Nerves 2-12 grossly intact, Strength intact to all extremities, Sensation intact to all extremities, gait normal Psych: Normal mood, normal affect <Jaydon Hilario - Last Filed: 08/08/18 23:45> - Resident Resident Name: Gaurav Cheema - ED Attending Attestation I have performed the following: I have examined & evaluated the patient, The case was reviewed & discussed with the resident, I agree w/resident's findings & plan, Exceptions are as noted - Medical Decision Making 08/09/18 00:47 Status post hemorrhoidectomy 08/02 [facility] by Dr. Merchant, presents to the ED with left- sided abdominal pain left back pain and suprapubic abdominal discomfort inability to urinate over the last 4-6 hours Here in the emergency department CAT scan was performed which showed moderate proctocolitis. Patient has no fever no white count. Despite multiple attempts patient unable to void in the emergency department A Shi catheter was placed Case was discussed with Dr. Carlin surgery covering for Dr. Merchant no indication for antibiotics given no fever no white count this amount of swelling unfortunately is normal postoperatively. Recommends patient to be discharged with Shi catheter in place patient will follow tomorrow morning with Dr. Merchant in her office. All findings and need for follow-up discussed at length with patient. <Vinny Linares - Last Filed: 08/09/18 00:47>
[2018-08-08] MEDS ORDERED: morphine SULFATE 4 MG/ML VIAL ONE (22:45)
[2018-08-08] MEDS ORDERED: morphine CARPU-JECT 4 MG/1 ML DISP.SYRIN IVPUSH ONE (22:45)
[2018-08-08 23:43] LABS: HEMATOCRIT 32.9 % (32.4-45.2); HEMOGLOBIN 10.1 GM/dL (10.7-15.3); MCHC 30.6 g/dl (32.0-36.0); MEAN PLT VOLUME 9.4 fl (7.5-11.1); PLATELET COUNT 280 K/MM3 (134-434); RBC 5.22 M/mm3 (3.60-5.2); RDW 18.3 % (11.6-15.6); WHITE BLOOD COUNT 9.5 K/mm3 (4.0-10.0)
--- NOTE | 2018-08-09 00:01 | PDOC ---
*Physical Exam - Vital Signs Last Vital Signs Temp Pulse Resp BP Pulse Ox 98.4 F 99 H 18 105/51 L 100 08/08/18 22:15 08/08/18 22:15 08/08/18 22:15 08/08/18 22:15 08/08/18 22:15 ED Treatment Course - LABORATORY CBC & Chemistry Diagram: 08/08/18 23:18 08/08/18 23:18 - Medications Given in the ED: ED Medications Discontinued Medications Generic Name Dose Route Start Last Admin Trade Name Gerardo PRN Reason Stop Dose Admin Morphine Sulfate 4 mg 08/08/18 22:45 08/08/18 23:20 Morphine Injection - IVPUSH 08/08/18 22:46 4 mg ONCE ONE Administration Medical Decision Making - Medical Decision Making 08/09/18 00:01 Ms. Sanders is a 57 yo female w/ pmh of recent hemorrhoidectomy who presents w/ 5 days of dysuria w/ difficulty voiding, left flank pain, and left back pain. Patient currently pending CT and dispo. Attempting void otherwise will straight cath. 08/09/18 00:38 Patient noted to have tissue thickening in lower rectum. Discussed with colorectal surgery who denote findings as expected following patient's recent surgery. Will place walton w/ bag for outpatient evaluation tomorrow as patient noted to have 500+cc's in bladder w/ inability to urinate. Patient to follow-up with Dr. Merchant tomorrow for further evaluation. Will follow recommendations and discharge to home. *DC/Admit/Observation/Transfer Diagnosis at time of Disposition: Urinary retention, Post-op pain - Discharge Dispostion Disposition: HOME Condition at time of disposition: Fair - Referrals Referrals: Amber Adams MD [Primary Care Provider] - - Patient Instructions Printed Discharge Instructions: How to Care for Your Walton Catheter -- Female Additional Instructions: You were evaluated today in the emergency room for your pain. CT scan revealed findings consistent with post operative changes. We discussed your case with the colo-rectal surgeons who will evaluate you tomorrow in office. A walton catheter was placed for management of your urinary changes. Please follow-up with Dr. Merchant first thing in the morning for an appointment. Return to ER if any increase in pain, fever, chills, or other concerning symptoms. - Post Discharge Activity
[2018-08-09 00:05] LABS: MCH 19.3 pg (25.7-33.7)
[2018-08-09 00:07] LABS: ALBUMIN 3.8 g/dl (3.4-5.0); ALK PHOS 127 U/L (45-117); ANION GAP 10 MMOL/L (8-16); BILIRUBIN,TOTAL 0.3 mg/dL (0.2-1); BLOOD UREA NITROGEN 11 mg/dL (7-18); CALCIUM 9.4 mg/dL (8.5-10.1); CHLORIDE 102 mmol/L (98-107); CO2 24 mmol/L (21-32); CREATININE 0.8 mg/dL (0.55-1.3); GLUCOSE,RANDOM 113 mg/dL (74-106); POTASSIUM 4.1 mmol/L (3.5-5.1); SGOT/AST 26 U/L (15-37); SGPT/ALT 32 U/L (13-61); SODIUM 136 mmol/L (136-145); TOT PROT 7.9 g/dl (6.4-8.2)
[2018-08-09] MEDS ORDERED: PIPERACILLIN/TAZOB 3.375 GM 3.375 GM in DEXTROSE 5%-WATER - 50 ML IVPB ONE (00:23)
== END 2018-08-09 01:20 | disposition home or self-care (01) ==
LOC: JER 22:14
PROC: 3E033NZ Introduction of Analgesics, Hypnotics, Sedatives into Peripheral Vein, Percutaneous Approach (ICD-10-PCS; principal; 2018-08-08)
PROC: 0T9B70Z Drainage of Bladder with Drainage Device, Via Natural or Artificial Opening (ICD-10-PCS; 2018-08-08)
DX: R33.8 Other retention of urine (principal); G89.18 Other acute postprocedural pain
CPT/HCPCS: 36415; 74176; 80053; 85027; 99282-25

== ENCOUNTER 2018-08-12 15:33 | Emergency (ER) | payer OTHER ==
[2018-08-12 15:45] VITALS: BMI 31.8
--- NOTE | 2018-08-12 15:46 | PDOC ---
Rapid Medical Evaluation Chief Complaint: Pain Time Seen by Provider: 08/12/18 15:41 Medical Evaluation: Allergies Allergy/AdvReac Type Severity Reaction Status Date / Time No Known Drug Allergies Allergy Verified 08/08/18 22:21 08/12/18 15:41 I have performed a brief in-person evaluation of this patient. The patient presents with a chief complaint of: catheter pain x 4 hours, states is not draining well. denies fevers/ bleeding/ Pertinent physical exam findings: Squirming/ uncomfortable, mild suprapubic pain , states has with some yellow white vag D/C since yesterday/ I have ordered the following: UA- catheter. The patient will proceed to the ED for further evaluation 08/12/18 15:45 Discharge Disposition - Diagnosis Abdominal pain Qualifiers: Abdominal location: lower abdomen, unspecified Qualified Code(s): R10.30 - Lower abdominal pain, unspecified - Referrals Referrals: Amber Adams MD [Primary Care Provider] - - Patient Instructions - Post Discharge Activity
[2018-08-12 16:23] LABS: URINE APPEARANCE SLCLOUDY; URINE BILIRUBIN NEGATIVE (<2.0 mg/dL); URINE COLOR AMBER; URINE GLUCOSE (UA) NEGATIVE (NEGATIVE); URINE KETONE NEGATIVE (NEGATIVE); URINE LEUK ESTERASE TRACE (NEGATIVE); URINE NITRITE NEGATIVE (NEGATIVE); URINE PROTEIN 2+ (NEGATIVE); URINE UROBILINOGEN NEGATIVE mg/dL (0.2-1.0)
[2018-08-12 16:41] LABS: CALCIUM OXALATE CRYSTALS FEW /hpf (NONE SEEN); EPI CELLS RARE /HPF (FEW); URINE BACTERIA RARE /hpf (NONE SEEN); URINE MUCUS MODERATE
--- NOTE | 2018-08-12 18:08 | PDOC ---
History of Present Illness <MicheleSherieladio Blount - Last Filed: 08/12/18 18:42> - General History Source: Patient Exam Limitations: No Limitations - History of Present Illness Initial Comments: 08/12/18 19:19 The patient is a 57 year old female, with a significant past medical history of GERD, depression, internal hemorrhoid (s/p hemorrhoidectomy), who presents to the emergency department with, lower abdominal pain. She describes her pain as nonradiating. Patient had a walton catheter placed 4 days ago for urinary retention. The patients catheter is planned to be removed 08/15 by her surgeon . Patient also endorses yellow discharge. Patient notes changing her catheter multiple times per day and endorses she wants it to be removed. She denies recent headache or dizziness. She denies recent nausea, vomit, diarrhea or constipation. She denies recent chest pain or shortness of breath. Allergies: NKDA Social history: No smoking. No alcohol. No illicit drugs. Surgical history: s/p hemorrhoidectomy PMD: Dr. Amber Adams <Kira Cooper - Last Filed: 08/12/18 19:24> - General Chief Complaint: Pain Stated Complaint: ABD PAIN Time Seen by Provider: 08/12/18 15:41 Past History - Past Medical History Anemia: No Asthma: No Cancer: No Cardiac Disorders: No CVA: No COPD: No CHF: No Dementia: No Diabetes: No GI Disorders: Yes (GERD) Disorders: No HTN: No Hypercholesterolemia: No Liver Disease: No Seizures: No Thyroid Disease: No Lung CA: Yes (depression) - Surgical History Abdominal Surgery: Yes (R INGUINAL HERNIA REPAIR) Appendectomy: No Cardiac Surgery: No Cholecystectomy: No Lung Surgery: No Neurologic Surgery: No Orthopedic Surgery: No - Immunization History Immunization Up to Date: Yes - Suicide/Smoking/Psychosocial Hx Smoking History: Unknown if ever smoked Have you smoked in the past 12 months: No Number of Cigarettes Smoked Daily: 0 Hx Alcohol Use: No Drug/Substance Use Hx: No Substance Use Type: None Hx Substance Use Treatment: No <Sheri Bautista - Last Filed: 08/12/18 18:42> <Kira Cooper - Last Filed: 08/12/18 19:24> - Past Medical History Allergies/Adverse Reactions: Allergies Allergy/AdvReac Type Severity Reaction Status Date / Time No Known Drug Allergies Allergy Verified 08/12/18 15:43 Home Medications: Ambulatory Orders Phenazopyridine HCl [Pyridium -] 100 mg PO BID #6 tablet 08/12/18 Sulfamethoxazole/Trimethoprim [Bactrim Ds -] 1 tab PO BID #10 tablet 08/12/18 Review of Systems - Review of Systems Able to Perform ROS?: Yes Comments:: 08/12/18 19:19 CONSTITUTIONAL: Absent: fever, no chills, no fatigue EYES: Absent: visual changes ENT: Absent: ear pain, no sore throat CARDIOVASCULAR: Absent: chest pain, no palpitations RESPIRATORY: Absent: cough, no SOB GI: Absent: abdominal pain, no nausea, no vomiting, no constipation, no diarrhea GENITOURINARY: Present: Abdominal pain. Vaginal discharge. MUSKULOSKELETAL: Absent: back pain, no arthralgia, no myalgia SKIN: Absent: rash NEURO: Absent: headache <Kira Cooper - Last Filed: 08/12/18 19:24> *Physical Exam - Vital Signs Last Vital Signs Temp Pulse Resp BP Pulse Ox 98.8 F 86 22 H 107/67 08/12/18 15:44 08/12/18 15:44 08/12/18 15:44 08/12/18 15:44 <Sheri Bautista - Last Filed: 08/12/18 18:42> - Vital Signs Last Vital Signs Temp Pulse Resp BP Pulse Ox 98.8 F 86 22 H 107/67 08/12/18 15:44 08/12/18 15:44 08/12/18 15:44 08/12/18 15:44 - Physical Exam Comments: 08/12/18 19:22 GENERAL: Well-appearing, well-nourished. No apparent distress. HEENT: Normocephalic, atraumatic. PERRL, EOM intact. CARDIOVASCULAR: Normal S1, S2. Regular rate and rhythm. PULMONARY: Clear to auscultation bilaterally. ABDOMEN: Soft, non-distended, non-tender. +EXTREMITIES: Leg bag in place. Normal ROM in all four extremities. No gross deformities. +RECTAL: Nonthrombosed external hemorrhoid. SKIN: Warm, dry. No rash NEUROLOGICAL: No focal neurological deficits. <Kira Cooper - Last Filed: 08/12/18 19:24> ED Treatment Course - ADDITIONAL ORDERS Additional order review: Laboratory Results 08/12/18 15:45 Urine Color Yissel Urine Appearance Slcloudy Urine pH 5.0 D Ur Specific [place] 1.023 Urine Protein 2+ H Urine Glucose (UA) Negative Urine Ketones Negative Urine Blood 3+ H Urine Nitrite Negative Urine Bilirubin Negative Urine Urobilinogen Negative Ur Leukocyte Esterase Trace Urine WBC (Auto) 5 Urine RBC (Auto) 2065 Ur Epithelial Cells Rare Calcium Oxalate Crystal Few Urine Bacteria Rare Urine Mucus Moderate <Sheri Bautista - Last Filed: 08/12/18 18:42> - ADDITIONAL ORDERS Additional order review: Laboratory Results 08/12/18 15:45 Urine Color Yissel Urine Appearance Slcloudy Urine pH 5.0 D Ur Specific [place] 1.023 Urine Protein 2+ H Urine Glucose (UA) Negative Urine Ketones Negative Urine Blood 3+ H Urine Nitrite Negative Urine Bilirubin Negative Urine Urobilinogen Negative Ur Leukocyte Esterase Trace Urine WBC (Auto) 5 Urine RBC (Auto) 2065 Ur Epithelial Cells Rare Calcium Oxalate Crystal Few Urine Bacteria Rare Urine Mucus Moderate <Kira Cooper - Last Filed: 08/12/18 19:24> *DC/Admit/Observation/Transfer <Sheri Bautista - Last Filed: 08/12/18 18:42> - Attestations Scribe Attestion: 08/12/18 19:24 Documentation prepared by Kira Cooper, acting as medical affairs leader for Sheri Bautista MD. <Kira Cooper - Last Filed: 08/12/18 19:24> Diagnosis at time of Disposition: Dysuria Abdominal pain Qualifiers: Abdominal location: lower abdomen, unspecified Qualified Code(s): R10.30 - Lower abdominal pain, unspecified - Discharge Dispostion Disposition: HOME Condition at time of disposition: Stable - Prescriptions Prescriptions: Phenazopyridine HCl [Pyridium -] 100 mg PO BID #6 tablet Sulfamethoxazole/Trimethoprim [Bactrim Ds -] 1 tab PO BID #10 tablet - Referrals Referrals: Amber Adams MD [Primary Care Provider] - - Patient Instructions Printed Discharge Instructions: DI for Dysuria -- Adult Additional Instructions: Please follow up with your surgeon this week - Post Discharge Activity
[2018-08-12 19:24] VITALS: BP 110/56; PULSE 80; TEMP 98
== END 2018-08-12 19:24 | disposition home or self-care (01) ==
LOC: JER 15:33
DX: R30.0 Dysuria (principal); K21.9 Gastro-esophageal reflux disease without esophagitis; F32.9 Major depressive disorder, single episode, unspecified; K64.4 Residual hemorrhoidal skin tags
CPT/HCPCS: 81003; 81015; 87086; 87186; 99283-25

== ENCOUNTER 2020-09-11 19:33 | Emergency (ER) | payer OTHER ==
[2020-09-11 19:50] VITALS: BP 113/74; PULSE 82; TEMP 98.5; BMI 34.0
[2020-09-11] MEDS ORDERED: IBUPROFEN 600 MG TABLET (FP) PO ONE ×2 (20:24→20:28)
[2020-09-11] MEDS ORDERED: DIPHTH,PERTUSS(ACELL),TET 0.5 ML DISP.SYRIN IM ONE ×2 (20:25→20:28)
== END 2020-09-11 21:59 | disposition home or self-care (01) ==
LOC: JER 19:33 → JERFT 19:33
PROC: 3E0234Z Introduction of Serum, Toxoid and Vaccine into Muscle, Percutaneous Approach (ICD-10-PCS; principal; 2020-09-11)
DX: M25.531 Pain in right wrist (principal); S02.2XXA Fracture of nasal bones, initial encounter for closed fracture; M25.572 Pain in left ankle and joints of left foot; W19.XXXA Unspecified fall, initial encounter
CPT/HCPCS: 70160-TC-FY; 72040-TC; 73110-TC-RT-FY; 73130-TC-RT-FY; 73610-TC-LT-FY; 73630-TC-LT; 90715; 99284-25

== ENCOUNTER 2022-11-04 01:05 | Emergency (ER) | payer OTHER ==
[2022-11-04 01:10] VITALS: BP 146/94; PULSE 85; RESP 17; TEMP 97.6; BMI 32.1
[2022-11-04] MEDS ORDERED: KETOROLAC TROMETHAMINE 30 MG/1 ML VIAL IM ONE (01:31)
[2022-11-04] MEDS ORDERED: morphine CARPU-JECT 2 MG/1 ML DISP.SYRIN IVPUSH ONE (01:37)
[2022-11-04] MEDS ORDERED: ACETAMINOPHEN 1000 MG/100 ML BAG IVPB ONE (01:37)
[2022-11-04] MEDS ORDERED: ACETAMINOPHEN INJECTION 100 ML IVPB ONE (01:39)
[2022-11-04] MEDS ORDERED: morphine CARPU-JECT 8 MG/1 ML DISP.SYRIN IVPUSH ONE (01:41)
[2022-11-04 02:19] LABS: BASO % 0.2 % (0-2.0); EOS % 0.1 % (0-4.5); HEMATOCRIT 40.5 % (32.4-45.2); HEMOGLOBIN 13.5 GM/dL (10.7-15.3); MCH 27.1 pg (25.7-33.7); MCHC 33.3 g/dl (32.0-36.0); MEAN CELL VOLUME 81.4 fl (80-96); MONO % 8.1 % (3.8-10.2); NEUT % 53.6 % (42.8-82.8); PLATELET COUNT 182 10^3/uL (134-434); RBC 4.98 M/mm3 (3.60-5.2); RDW 13.3 % (11.6-15.6); WHITE BLOOD COUNT 7.5 K/mm3 (4.0-10.0)
[2022-11-04 02:24] LABS: INR 1.09 (0.83-1.09); PROTHROMBIN TIME (PATIENT) 12.5 SEC (9.7-13.0)
[2022-11-04 02:39] LABS: BLOOD UREA NITROGEN 13.8 mg/dL (7-18); CALCIUM 9.3 mg/dL (8.5-10.1)
[2022-11-04 02:41] LABS: CREATININE 0.9 mg/dL (0.55-1.3)
[2022-11-04 02:44] LABS: BILIRUBIN,TOTAL 0.4 mg/dL (0.2-1); TOT PROT 7.3 g/dl (6.4-8.2)
== END 2022-11-04 04:51 | disposition home or self-care (01) ==
LOC: JER 01:05
PROC: 3E0333Z Introduction of Anti-inflammatory into Peripheral Vein, Percutaneous Approach (ICD-10-PCS; principal; 2022-11-04)
PROC: 3E033NZ Introduction of Analgesics, Hypnotics, Sedatives into Peripheral Vein, Percutaneous Approach (ICD-10-PCS; 2022-11-04)
PROC: 0HQ1XZZ Repair Face Skin, External Approach (ICD-10-PCS; 2022-11-04)
DX: S01.81XA Laceration without foreign body of other part of head, initial encounter (principal); W26.8XXA Contact with other sharp object(s), not elsewhere classified, initial encounter
CPT/HCPCS: 36415; 70450-TC; 70486-TC; 80053; 85025; 85610; 99285-25

== ENCOUNTER 2023-03-12 09:54 | Emergency (ER) | payer OTHER ==
[2023-03-12 10:01] VITALS: BMI 28.6
[2023-03-12] MEDS ORDERED: ACETAMINOPHEN 325 MG TABLET (FP) PO ONE (10:20)
[2023-03-12] MEDS ORDERED: ACETAMINOPHEN 325 MG TABLET (FP) ONE (10:26)
[2023-03-12 12:40] VITALS: BP 110/77; PULSE 72; RESP 19; TEMP 98.6
== END 2023-03-12 12:05 | disposition home or self-care (01) ==
LOC: JER 09:54
DX: S09.90XA Unspecified injury of head, initial encounter (principal); M25.512 Pain in left shoulder; W22.01XA Walked into wall, initial encounter
CPT/HCPCS: 70450-TC; 72125-TC; 99284-25